=== PATIENT | female | born 1990 | race Caucasian/White ===

== ENCOUNTER 2020-03-26 15:31 | Outpatient (REF) | payer OTHER, SELFPAY ==
[2020-03-28 22:56] LABS: HPV mRNA E6/E7 rflx Not Detected (Not Detected)
== END 2020-03-26 15:32 | disposition home or self-care (01) ==
LOC: HO.LAB 15:31
PROVIDERS: PCP Internal Medicine; Visit Provider Obstetrics & Gynecology
DX: Z01.419 Encounter for gynecological examination (general) (routine) without abnormal findings (principal); F17.210 Nicotine dependence, cigarettes, uncomplicated
CPT/HCPCS: 87624; 87625; 88142

== ENCOUNTER 2021-04-27 13:36 | Outpatient (REF) | payer OTHER, SELFPAY ==
[2021-04-27 15:19] LABS: Influenza A PCR NEGATIVE (Negative); Influenza B PCR NEGATIVE (Negative); Resp Syncy Virus RNA Qual PCR NEGATIVE (Negative); SARS COV2 PCR INHOUSE NEGATIVE (Negative)
== END 2021-04-27 13:37 | disposition home or self-care (01) ==
LOC: HO.LNP 13:36
PROVIDERS: Visit Provider Physician Assistant
DX: J06.9 Acute upper respiratory infection, unspecified (principal); Z20.822 Contact with and (suspected) exposure to COVID-19
CPT/HCPCS: 0241U

== ENCOUNTER 2021-09-05 09:36 | Outpatient (REF) | payer OTHER, SELFPAY ==
[2021-09-05 12:34] LABS: Appearance Urine CLOUDY; Color Urine YELLOW; Glucose Urine UA NEG (NEG); Leukocyte Esterase Urine NEG (NEG); Nitrite Urine NEG (NEG); Specific Gravity - Urine >= 1.030 (1.005-1.025); Urine Blood NEG (NEG); Urine Ketones NEG (NEG); Urine Protein NEG (NEG-TRACE)
== END 2021-09-05 09:37 | disposition home or self-care (01) ==
LOC: HO.LAB 09:36
PROVIDERS: Visit Provider Nurse Practitioner Acute Care
DX: R30.0 Dysuria (principal)
CPT/HCPCS: 81003

== ENCOUNTER 2021-12-03 15:28 | Outpatient (REF) | payer OTHER, SELFPAY ==
[2021-12-04 11:53] LABS: CT PCR NOT DETECTED (Not Detect.)
[2021-12-04 11:54] LABS: NG PCR NOT DETECTED (Not Detect.)
== END 2021-12-03 15:29 | disposition home or self-care (01) ==
LOC: HO.LAB 15:28
PROVIDERS: Visit Provider Obstetrics & Gynecology
DX: Z11.3 Encounter for screening for infections with a predominantly sexual mode of transmission (principal); R10.2 Pelvic and perineal pain
CPT/HCPCS: 87491; 87591

== ENCOUNTER 2022-02-11 11:26 | Outpatient (REF) | payer OTHER, SELFPAY ==
[2022-02-11 14:47] LABS: CT PCR NOT DETECTED (Not Detect.); NG PCR NOT DETECTED (Not Detect.)
[2022-02-12 13:30] LABS: BV Int Neg Control Negative (Negative); BV Int Pos Control Positive (Positive)
== END 2022-02-11 11:27 | disposition home or self-care (01) ==
LOC: HO.LNP 11:26
PROVIDERS: Visit Provider Obstetrics & Gynecology
DX: Z11.3 Encounter for screening for infections with a predominantly sexual mode of transmission (principal); N76.0 Acute vaginitis; B96.89 Other specified bacterial agents as the cause of diseases classified elsewhere
CPT/HCPCS: 87480; 87491; 87510; 87591; 87660; 99212

== ENCOUNTER → 2022-04-02 13:41 | Outpatient (BNVA) | payer OTHER, SELFPAY | PROVIDERS: PCP Internal Medicine; Visit Provider Obstetrics & Gynecology | DX: Z30.9 Encounter for contraceptive management, unspecified (principal) | CPT/HCPCS: 99212 ==

== ENCOUNTER 2022-12-08 14:44 | Outpatient (AMB) | payer OTHER, SELFPAY ==
--- NOTE | 2022-12-08 14:46 | MHC.OFFVIS ---
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 Complaining of postvoid dribbling, not associated with dysuria urgency or urge incontinence. Last Pap/HPV was in 03/30 was negative PFSH Surgical History H/O LEEP Family History Father No problems noted. Mother No problems noted. Sister Crohn disease Hypothyroidism Sister No problems noted. Social History Household Members Other:: Fiance Housing: House Alcohol intake: current Alcohol intake frequency: a few times a week Patient Tobacco Use Status: Current everyday Tobacco user Cigarettes Per Day: 6 Years Smoked: 15 Current occupational status: employed Current occupation: [employer] Sexually active: Yes Sexual orientation: Straight/Heterosexual Gender identity: Female Female Reproductive History Menstrual Age of Menarche: 13 Duration of menses: 3-5 days Date of last menstrual period: 11/24/22 Total pregnancies: 2 Ab induced: 2 Date of last pap smear: 03/27/20 Review of Systems Const All systems reviewed & are unremarkable except as noted in HPI and below Card Reports as per HPI Resp Reports as per HPI GI Reports as per HPI and Reports no additional complaints Reports as per HPI Physical Exam Vital Signs: Last Vital Signs BP 100/60 12/08/22 14:47 BMI result Body Mass Index 22.4 Const General: cooperative, healthy appearing and comfortable Chest Chest palpation & inspection: normal inspection of the chest and normal palpation of entire chest wall Breast/axilla inspection: normal inspection of the breasts and normal inspection of the axillae Breast/axilla palpation: normal palpation of the breasts, normal palpation of the axillae and no axillary lymphadenopathy General: Yes bladder normal to palpation External Female Exam: No lesion Speculum Exam - Vagina: normal appearance of the vagina, normal palpation, normal vaginal discharge and not erythematous Speculum Exam - Cervix: normal appearance of the cervix and normal palpation Bimanual exam- vagina & uterus: normal bimanual exam, normal palpation, uterine size normal, bladder normal to palpation, consistency normal and normal palpation Bimanual Exam- Adnexa, other: normal adnexae, no masses and no tenderness Results AMB Urinalysis, Automated UA Leukoctes 0 Amaya/uL Last Edit by [facility] on 12/08/22 15:18 UA Nitrite Negative Last Edit by [facility] on 12/08/22 15:18 UA Urobilinogen 0 mg/dL Last Edit by [facility] on 12/08/22 15:18 UA Protein 0 mg/dL Last Edit by [facility] on 12/08/22 15:18 UA pH 5.0 Last Edit by [facility] on 12/08/22 15:18 UA Blood 0 Sylvester/uL Last Edit by [facility] on 12/08/22 15:18 UA Specific [place] 1.030 Last Edit by [facility] on 12/08/22 15:18 UA Ketone Positive Last Edit by [facility] on 12/08/22 15:18 2 Abigail Murillo 12/08/22 15:18 UA Bilirubin 0 mg/dL Last Edit by [facility] on 12/08/22 15:18 UA Glucose 0 mg/dL Last Edit by [facility] on 12/08/22 15:18 Assessment & Plan Assessment & Plan (1) Well woman exam: Code(s): Z01.419 - Encounter for gynecological examination (general) (routine) without abnormal findings Plan: Cotesting not indicated this year. Counseled the patient about the recommended dietary allowance of 1000 mg of Calcium & 600 IU of vitamin D. The patient was instructed to perform monthly self-breast exams and to schedule an annual exam in a year; All questions answered and the patient verbalized understanding. Instructed the patient to schedule annual exam in a year (2) Post-void dribbling: Code(s): N39.43 - Post-void dribbling Plan: Urine dip done in the office was negative , will refer to Urology for further management Orders: Orders AMB Urinalysis Automated Today N39.43 - Post-void dribbling Pap Smear Today Z01.419 - Encounter for gynecological examination (general) (routine) without abnormal findings Referrals Urology Referral N39.43 - Post-void dribbling Coding Level of Care Code Est Pt Prev Care 18-39y(51767) Diagnoses Well woman exam Z01.419 Post-void dribbling N39.43
[2022-12-08 14:47] VITALS: BP 100/60; BMI 22.4
== END 2022-12-08 15:28 | disposition home or self-care (01) ==
LOC: HO.HWS 14:44
PROVIDERS: PCP Internal Medicine; Visit Provider Obstetrics & Gynecology
DX: Z01.419 Encounter for gynecological examination (general) (routine) without abnormal findings (principal); N39.43 Post-void dribbling
CPT/HCPCS: 99395

== ENCOUNTER 2022-12-08 14:44 | Outpatient (REF) | payer OTHER, SELFPAY ==
[2022-12-16 06:34] LABS: HPV mRNA E6/E7 rflx Not Detected (Not Detected)
== END 2022-12-08 14:45 | disposition home or self-care (01) ==
LOC: HO.LNP 14:44
PROVIDERS: PCP Internal Medicine; Visit Provider Obstetrics & Gynecology
DX: Z01.419 Encounter for gynecological examination (general) (routine) without abnormal findings (principal); N39.43 Post-void dribbling
CPT/HCPCS: 81003; 87624; 88142

== ENCOUNTER 2023-02-09 10:03 | Outpatient (AMB) | payer OTHER, SELFPAY ==
--- NOTE | 2023-02-09 10:08 | MHC.OFFVIS ---
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 She presents to the office today as a new patient for urinary dribbling. In discussion with the patient today she reports to be doing and feeling well. She discusses noting urinary dribbling after urination. She denies any previous child births in the past. She denies urinary urgency, urinary frequency, incontinence, nocturia, hematuria, dysuria, foul smelling urine, changes to urinary stream, flank pain, fever, and or chills. She does endorse to dysuria at times however reports at times dysuria will improve with increase in fluid intake. She does endorse to a history of UTIs in the past however reports approximately one per year. In office urinalysis results reviewed with the patient today. PVR 0 mL. Patient otherwise denies any bothersome urinary issues or concerns at this time. [facility] Surgical History H/O LEEP Family History Father No problems noted. Mother No problems noted. Sister Crohn disease Hypothyroidism Sister No problems noted. Social History Household Members Other:: Fiance Housing: House Alcohol intake: current Alcohol intake frequency: a few times a week Patient Tobacco Use Status: Current everyday Tobacco user Cigarettes Per Day: 6 Years Smoked: 15 Current occupational status: employed Current occupation: [employer] for [employer] Sexual orientation: Straight/Heterosexual Gender identity: Female Female Reproductive History Menstrual Age of Menarche: 13 Review of Systems Const All systems reviewed & are unremarkable except as noted in HPI and below Physical Exam Const General: cooperative, healthy appearing, comfortable, no acute distress, well developed, alert and awake Nutritional Appearance: thin Orientation/consciousness: patient oriented x3 Limitations: no limitations HEENT Head: Yes normal to inspection, Yes normocephalic and Yes atraumatic Ears: hearing grossly normal bilaterally Eyes General: appearance normal, both eyes and all related structures Neck Neck: Yes normal visual inspection and Yes trachea midline Chest Chest palpation & inspection: normal inspection of the chest Resp Effort & Inspection: normal respiratory effort and able to speak in complete sentences Cardio Rate: regular rate GI Inspection: Yes normal to inspection General: Yes no CVA tenderness Back/Spine/Pelvis Back: no CVA tenderness Skin General skin exam: no rashes or lesions noted Neuro General: patient oriented x3 Extrem General: Yes normal to inspection Psych Appearance: grossly normal and well kempt Mental Status: mental status grossly normal Speech and movement: Normal speech and movement present and Clear speech present Affect: normal affect Attitude: cooperative Thought process: Normal thought process present Thought content: Normal thought content present Insight: Good insight present (Psych) Judgement: Good judgement present (Psych) Office Procedures Post Void Residual Post Residual Void Post Void Residual (PVR): 12 08440-Vlip Void Residual by ultrasound Results AMB Urinalysis, Automated UA Leukoctes 0 Amaya/uL Last Edit by [facility] on 02/09/23 10:19 UA Nitrite Negative Last Edit by [facility] on 02/09/23 10:19 UA Urobilinogen 0.2 mg/dL Last Edit by [facility] on 02/09/23 10:19 UA Protein 0 mg/dL Last Edit by [facility] on 02/09/23 10:19 UA pH 6.0 Last Edit by [facility] on 02/09/23 10:19 UA Blood 0 Sylvester/uL Last Edit by [facility] on 02/09/23 10:19 UA Specific [place] 1.030 Last Edit by [facility] on 02/09/23 10:19 UA Ketone Negative Last Edit by [facility] on 02/09/23 10:19 UA Bilirubin 0 mg/dL Last Edit by [facility] on 02/09/23 10:19 UA Glucose 0 mg/dL Last Edit by [facility] on 02/09/23 10:19 Results Reviewed Results Reviewed: Laboratory Last Values Urine pH (Auto) 6.0 02/09/23 10:11 Specific [place] (Auto) 1.030 02/09/23 10:11 Urine Protein (Auto) 0 mg/dL 02/09/23 10:11 Glucose (UA)(Auto) 0 mg/dL 02/09/23 10:11 Urine Ketones (Auto) Negative 02/09/23 10:11 Urine Blood (Auto) 0 Sylvester/uL 02/09/23 10:11 Urine Nitrite (Auto) Negative 02/09/23 10:11 Urine Bilirubin (Auto) 0 mg/dL 02/09/23 10:11 Urine Urobilinogen (Auto) 0.2 mg/dL 02/09/23 10:11 Leukocyte Esterase (Auto) 0 Amaya/uL 02/09/23 10:11 Assessment & Plan Assessment & Plan (1) Post-void dribbling: Code(s): N39.43 - Post-void dribbling (2) Dysuria: Code(s): R30.0 - Dysuria Plan In office urinalysis results reviewed with the patient today. PVR 0 mL. Discussed at length pelvic floor therapy; information provided as well as information on vaginal weights. Discussed obtaining retroperitoneal ultrasound for further assessment evaluation. Discussed, educated, instructed on the importance of drinking plenty of water daily. Discussed UTI prevention with D mannose supplement, vitamin-C, increasing fluid intake, behavioral therapy with timed voiding, perineal hygiene and postcoital voiding, and management of constipation with stool softeners and increased fiber intake. Follow-up in 2-3 months with imaging to be completed prior; or sooner with any issues, concerns, and or questions. Orders: Orders AMB Urinalysis Automated Today Z13.9 - Encounter for screening, unspecified US retroperitoneal comp Today N39.43 - Post-void dribbling, R30.0 - Dysuria AMB Post Void Residual by ultrasound Today N39.43 - Post-void dribbling Coding Level of Care Code New Pt Level 3 (31062) Diagnoses Post-void dribbling N39.43 Dysuria R30.0 CPT Codes Post Residual Void - PVR CPT Code: 08768-Nxlu Void Residual by ultrasound ([id number])
== END 2023-02-09 10:51 | disposition home or self-care (01) ==
PROVIDERS: PCP Internal Medicine; Visit Provider Nurse Practitioner Family
DX: N39.43 Post-void dribbling (principal); R30.0 Dysuria; Z13.9 Encounter for screening, unspecified
CPT/HCPCS: 99203

== ENCOUNTER → 2023-02-09 10:03 | Outpatient (BNVA) | payer OTHER, SELFPAY | PROVIDERS: PCP Internal Medicine; Visit Provider Nurse Practitioner Family | DX: N39.43 Post-void dribbling (principal); R30.0 Dysuria | CPT/HCPCS: 51798; 81003 ==

== ENCOUNTER 2023-04-01 08:34 | Outpatient (AMB) | payer OTHER, SELFPAY ==
--- NOTE | 2023-04-01 09:08 | AM.OFFWIN_ITS ---
Intake Vital Signs 04/01/23 09:15 Height 4 ft 10 in Weight 112 lb BMI 23.4 BP 96/60 Blood Pressure Location Rt brachial Position Sitting Pulse 86 Pulse Source Pulse Oximeter Temp 97.8 F Temp Source Oral Pulse Oximetry (%) 97 Oxygen Delivery Method Room Air Intake Visit Reasons: EST/sore throat([phone]) Intake Note: Patient here for consistent cough that has been present for about 2 weeks and starting to get a sore throat again after two weeks. Patient Tobacco Use Status: Current everyday Tobacco user Allergies No Known Allergies [No Known Allergies*] Allergy (Verified 04/01/23 09:09) Do you need a note to return to daycare/school/sports/work: No HPI EST/sore throat([phone]) HPI Details 32 [facility]. She reports sore throat and cough with foul-tasting/smelling sputum for the last week or so. She had an upper respiratory infection a couple of weeks ago, and symptoms have resolved aside from the ongoing sore throat and productive cough. Denies any fever/chills, GI symptoms. No hx asthma. Daily smoker. PFSH Surgical History H/O LEEP Family History Father No problems noted. Mother No problems noted. Sister Crohn disease Hypothyroidism Sister No problems noted. 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 [employer] Sexual orientation: Straight/Heterosexual Gender identity: Female Female Reproductive History Menstrual Age of Menarche: 13 Review of Systems Const All systems reviewed & are unremarkable except as noted in HPI and below Physical Exam Vital Signs: Last Vital Signs Temp 97.8 F 04/01/23 09:15 Pulse 86 04/01/23 09:15 BP 96/60 04/01/23 09:15 Pulse Ox 97 04/01/23 09:15 Oxygen Delivery Method Room Air 04/01/23 09:15 BMI result Body Mass Index 23.4 Const General: cooperative, healthy appearing and no acute distress HEENT Head: Yes normal to inspection Ears: hearing grossly normal bilaterally General nose exam: Normal external nose present and Normal nasal mucous membranes and turbinates present Face and sinus: Yes normal facial exam and Yes sinuses nontender Mouth: Normal oral and palatal mucosa present Throat: Yes posterior oropharynx abnormal (Erythematous) Neck Neck: Yes no lymphadenopathy Resp Effort & Inspection: normal respiratory effort and Actively coughing Quality: productive Auscultation: rhonchi (otherwise clear) upper bilaterally Cardio Jugular venous distension: no JVD Palpation: normal PMI Rate: regular rate Rhythm: regular rhythm Skin General skin exam: no rashes or lesions noted Extrem General: Yes capillary refill normal and Yes no clubbing, cyanosis or edema Psych Appearance: grossly normal Mental Status: mental status grossly normal Speech and movement: Normal speech and movement present Results AMB Rapid Strep AMB Rapid Strep Negative Last Edit by SENA Griffin on 04/01/23 09:33 Assessment & Plan Assessment & Plan (1) Bronchitis: Code(s): J40 - Bronchitis, not specified as acute or chronic Plan: Azithromycin and benzonatate sent to pharmacy. Reviewed indications, use, possible s/e of medications. Reviewed importance of increased hydration, vitamin intake, and smoking cessasion. If she does not improve with treatment or if new symptoms develop, she can return to the clinic for further evaluation. She verbalizes understanding and agrees to plan. Orders: Orders AMB Rapid Strep Screen Today Z13.9 - Encounter for screening, unspecified Medications: New azithromycin For 250 mg dose pack: take 500 mg today (day 1), then 250 mg for 4 days (days 2-5) PO 6 tabs 0RF J40 - Bronchitis, not specified as acute or chronic benzonatate 100 mg PO BID 7 days PRN 14 caps 0RF cough R05.9 - Cough, unspecified Coding Level of Care Code Est Pt Level 3 (35679) Diagnoses Bronchitis J40
[2023-04-01 09:15] VITALS: BP 96/60; PULSE 86; TEMP 36.6; O2SAT 97; BMI 23.4
== END 2023-04-01 09:36 | disposition home or self-care (01) ==
PROVIDERS: PCP Internal Medicine; Visit Provider Nurse Practitioner Family
DX: J40 Bronchitis, not specified as acute or chronic (principal); J02.9 Acute pharyngitis, unspecified
CPT/HCPCS: 87880; 99213

== ENCOUNTER 2023-05-13 10:40 | Outpatient (AMB) | payer OTHER, SELFPAY ==
--- NOTE | 2023-05-13 11:23 | MHC.OFFWIV ---
Intake Vital Signs 05/13/23 11:24 Height 4 ft 10 in Weight 113 lb 8 oz BMI 23.7 BP 110/62 Blood Pressure Location Lt brachial Position Sitting Pulse 73 Pulse Source Pulse Oximeter Temp 98.1 F Temp Source Temporal Artery Scan Pulse Oximetry (%) 100 Oxygen Delivery Method Room Air Intake Visit Reasons: EP,congestion,burning with urination([phone]) Intake Note: Pt is here c/o congestion for a few weeks as well as c/o burning when urinating for two days. Patient Tobacco Use Status: Current everyday Tobacco user Allergies No Known Allergies [No Known Allergies*] Allergy (Verified 05/13/23 11:23) Do you need a note to return to daycare/school/sports/work: No HPI EP,congestion,burning with urination([phone]) HPI Details This is a 32 year old female patient who returns to the clinic today for 2 complaints. She was seen here on 04/01 for bronchitis and was started on a Z-pack and benzonatate. She reports that she improved somewhat, however her congestion and productive cough has recurred over the last 2 weeks. She denies fever/chills. Denies GI symptoms. She also reports some burning with urination since yesterday. Does have a history of UTIs and states this is how they feel at the beginning. Denies fever, chills, or flank pain. [facility] Surgical History H/O LEEP Family History Father No problems noted. Mother No problems noted. Sister Crohn disease Hypothyroidism Sister No problems noted. Social History Household Members Other:: Fiance Housing: House Alcohol intake: current Alcohol intake frequency: a few times a week Patient Tobacco Use Status: Current everyday Tobacco user Cigarettes Per Day: 6 Years Smoked: 15 Current occupational status: employed Current occupation: [employer] Sexual orientation: Straight/Heterosexual Gender identity: Female Female Reproductive History Menstrual Age of Menarche: 13 Review of Systems Const All systems reviewed & are unremarkable except as noted in HPI and below Physical Exam Vital Signs: Last Vital Signs Temp 98.1 F 05/13/23 11:24 Pulse 73 05/13/23 11:24 BP 110/62 05/13/23 11:24 Pulse Ox 100 05/13/23 11:24 Oxygen Delivery Method Room Air 05/13/23 11:24 BMI result Body Mass Index 23.7 Const General: cooperative and no acute distress Nutritional Appearance: average body habitus HEENT Head: Yes normal to inspection Ears: hearing grossly normal bilaterally Face and sinus: Yes normal facial exam Throat: Yes posterior oropharynx normal Neck Neck: Yes no lymphadenopathy Resp Effort & Inspection: normal respiratory effort, able to speak in complete sentences and Actively coughing Quality: productive Auscultation: clear to auscultation bilaterally Cardio Palpation: normal PMI Rate: regular rate Rhythm: regular rhythm General: Yes no CVA tenderness Back/Spine/Pelvis Back: no CVA tenderness Skin General skin exam: no rashes or lesions noted Extrem General: Yes capillary refill normal and Yes no clubbing, cyanosis or edema Psych Appearance: grossly normal Mental Status: mental status grossly normal Speech and movement: Normal speech and movement present Results AMB Urinalysis, Automated UA Leukoctes 15 Amaya/uL Last Edit by Ann Marie Arevalo CMA on 05/13/23 11:35 UA Nitrite Negative Last Edit by Ann Marie Arevalo CMA on 05/13/23 11:35 UA Urobilinogen 0.2 mg/dL Last Edit by Ann Marie Arevalo CMA on 05/13/23 11:35 UA Protein 0 mg/dL Last Edit by Ann Marie Arevalo CMA on 05/13/23 11:35 UA pH 6.0 Last Edit by Ann Marie Arevalo CMA on 05/13/23 11:35 UA Blood 0 Sylvester/uL Last Edit by Ann Marie Arevalo CMA on 05/13/23 11:35 UA Specific [place] 1.025 Last Edit by Ann Marie Arevalo CMA on 05/13/23 11:35 UA Ketone Negative Last Edit by Ann Marie Arevalo CMA on 05/13/23 11:35 UA Bilirubin 0 mg/dL Last Edit by Ann Marie Arevalo CMA on 05/13/23 11:35 UA Glucose 0 mg/dL Last Edit by Ann Marie Arevalo CMA on 05/13/23 11:35 Results Reviewed Results Reviewed: Laboratory Last Values Urine pH (Auto) 6.0 05/13/23 11:33 Specific [place] (Auto) 1.025 05/13/23 11:33 Urine Protein (Auto) 0 mg/dL 05/13/23 11:33 Glucose (UA)(Auto) 0 mg/dL 05/13/23 11:33 Urine Ketones (Auto) Negative 05/13/23 11:33 Urine Blood (Auto) 0 Sylvester/uL 05/13/23 11:33 Urine Nitrite (Auto) Negative 05/13/23 11:33 Urine Bilirubin (Auto) 0 mg/dL 05/13/23 11:33 Urine Urobilinogen (Auto) 0.2 mg/dL 05/13/23 11:33 Leukocyte Esterase (Auto) 15 Amaya/uL 05/13/23 11:33 Assessment & Plan Assessment & Plan (1) Urinary tract infection: Code(s): N39.0 - Urinary tract infection, site not specified Qualifiers: Urinary tract infection type: acute cystitis Hematuria presence: without hematuria Qualified Code(s): N30.00 - Acute cystitis without hematuria Plan: Will start on Bactrim for UTI. This may also cover some of her residual URI. Will also refill her benzonatate for the cough. Advised increased hydration, Vitamin C intake. She can return to the clinic if she does not improve with treatment. She agrees to plan. (2) Upper respiratory infection: Code(s): J06.9 - Acute upper respiratory infection, unspecified Qualifiers: URI type: unspecified URI Qualified Code(s): J06.9 - Acute upper respiratory infection, unspecified Plan: Benzonatate refilled. Orders: Orders AMB Urinalysis Automated Today Z13.9 - Encounter for screening, unspecified Earl Ashford MD Medications: New sulfamethoxazole-trimethoprim 800-160 mg 1 tab PO BID 5 days 10 tabs 0RF N39.0 - Urinary tract infection, site not specified ANTHONY Salomon Refilled benzonatate 100 mg PO BID 7 days PRN 14 caps 0RF cough R05.9 - Cough, unspecified ANTHONY Salomon Coding Level of Care Code Est Pt Level 3 (62858) Diagnoses Acute cystitis without hematuria N30.00 Urinary tract infection type: acute cystitis Hematuria presence: without hematuria Upper respiratory tract infection, unspecified type J06.9 URI type: unspecified URI
[2023-05-13 11:24] VITALS: BP 110/62; PULSE 73; TEMP 36.7; O2SAT 100; BMI 23.7
== END 2023-05-13 12:27 | disposition home or self-care (01) ==
PROVIDERS: PCP Internal Medicine; Visit Provider Nurse Practitioner Family
DX: N30.00 Acute cystitis without hematuria (principal); J06.9 Acute upper respiratory infection, unspecified; R30.9 Painful micturition, unspecified
CPT/HCPCS: 81003; 99213

== ENCOUNTER 2024-11-18 11:51 | Outpatient (REF) | payer OTHER, SELFPAY | END 2024-11-18 11:52 | disposition home or self-care (01) | LOC: HO.LNP 11:51 | PROVIDERS: PCP Internal Medicine; Visit Provider Physician Assistant | DX: N39.0 Urinary tract infection, site not specified (principal) | CPT/HCPCS: 81003; 87086; 87088; 87186; 99212 ==

== ENCOUNTER 2024-11-18 11:51 | Outpatient (AMB) | payer OTHER, SELFPAY ==
[2024-11-18 12:01] VITALS: BP 100/56; PULSE 65; TEMP 36.8; O2SAT 98; BMI 27.2
--- NOTE | 2024-11-18 12:01 | AM.OFFWIN_ITS ---
Intake Vital Signs 11/18/24 12:01 Height 4 ft 10 in Weight 130 lb BMI 27.2 BP 100/56 L Blood Pressure Location Rt brachial Position Sitting Pulse 65 Pulse Source Pulse Oximeter Temp 98.2 F Temp Source Oral Pulse Oximetry (%) 98 Oxygen Delivery Method Room Air Intake Visit Reasons: EP UTI? Patient Tobacco Use Status: Current everyday Tobacco user In Home Baby Sitter Required: No Is last menstrual period known: Yes Last menstrual period: 10/28/24 Post menopausal: No Patient : No Allergies No Known Allergies (No Known Allergies*) Allergy (Verified 11/18/24 12:09) Do you need a note to return to daycare/school/sports/work: No HPI HPI Comments History of Present Illness Details History - The patient is a 33-year-old female pr esenting with symptoms of a urinary tract infection (UTI). - She reports frequent urination with a burning sensation during micturition. - The symptoms began approximately a mon ago, resolved with [id number] medication, but have since recurred. - She denies any fever or low back pain and has not noticed any bood in her urine - She has a history of similar symptoms and was referred to urology, although she did not attend the appointment. Physical Exam General: Cooperative, healthy appearing, comfortable, no acute distress and well developed Orientation: Patient oriented x3 Limitations: No limitations Head: Normal to inspection Ears: Hearing grossly normal bilaterally Face and sinus: Normal facial exam Neck: Normal visual inspection and Yes full ROM Respiratory: Normal respiratory effort and able to speak in complete sentences. Skin: No rashes or lesions noted Neuro: Patient oriented x3 Back/spine: negative CVA bilaterally PFSH Surgical History H/O LEEP Family History Father No problems noted. Mother No problems noted. Sister Crohn disease Hypothyroidism Sister No problems noted. Social History Household Members Other:: Fiance Housing: House Alcohol intake: current Alcohol intake frequency: a few times a week Patient Tobacco Use Status: Current everyday Tobacco user Cigarettes Per Day: 6 Years Smoked: 15 Patient : No Current occupational status: employed Current occupation: [employer] for [employer] Sexual orientation: Straight/Heterosexual Gender identity: Female Female Reproductive History Menstrual Age of Menarche: 13 Date of last menstrual period: 10/28/24 Review of Systems Const All systems reviewed & are unremarkable except as noted in HPI and below Physical Exam Vital Signs: Last Vital Signs Temp 98.2 F 11/18/24 12:01 Pulse 65 11/18/24 12:01 BP 100/56 L 11/18/24 12:01 Pulse Ox 98 11/18/24 12:01 Oxygen Delivery Method Room Air 11/18/24 12:01 BMI result Body Mass Index 27.2 Results AMB Urinalysis, Automated UA Leukoctes 500 Amaya/uL Last Edit by Carroll Mckeon CMA on 11/18/24 12:1 2 UA Nitrite Positive Last Edit by Carroll Mckeon CMA on 11/18/24 12:12 UA Urobilinogen 8 mg/dL Last Edit by Carroll Mckeon CMA on 11/18/24 12:1 2 UA Protein 0 mg/dL Last Edit by Carroll Mckeon CMA on 11/18/24 12:12 UA pH 5.0 Last Edit by Carroll Mckeon CMA on 11/18/24 12:12 UA Blood 10 Sylvester/uL Last Edit by Carroll Mckeon CMA on 11/18/24 12:12 UA Specific [place] 1.030 Last Edit by Carroll Mckeon CMA on 11/18/24 12:12 UA Ketone Positive Last Edit by Carroll Mckeon CMA on 11/18/24 12:12 UA Bilirubin 4 mg/dL Last Edit by Carroll Mckeon CMA on 11/18/24 12:12 UA Glucose 250 mg/dL Last Edit by Carroll Mckeon CMA on 11/18/24 12:12 Results Reviewed Results Reviewed: Laboratory Last Values Urine pH (Auto) 5.0 11/18/24 12:12 Specific [place] (Auto) 1.030 11/18/24 12:12 Urine Protein (Auto) 0 mg/dL 11/18/24 12:12 Glucose (UA)(Auto) 250 mg/dL 11/18/24 12:12 Urine Ketones (Auto) Positive 11/18/24 12:12 Urine Blood (Auto) 10 Sylvester/uL 11/18/24 12:12 Urine Nitrite (Auto) Positive 11/18/24 12:12 Urine Bilirubin (Auto) 4 mg/dL 11/18/24 12:12 Urine Urobilinogen (Auto) 8 mg/dL 11/18/24 12:12 Leukocyte Esterase (Auto) 500 Amaya/uL 11/18/24 12:12 Assessment & Plan Assessment & Plan (1) Urinary tract infection: Code(s): N39.0 - Urinary tract infection, site not specified Qualifiers: Urinary tract infection type: acute cystitis Hematuria presence: without hematuria Qualified Code(s): N30.00 - Acute cystitis without hematuria Plan: Plan Patient was informed and verbally consented to the use of an ambient scribe for clinic note documentation during this visit. 1. Urinary Tract Infection (Uti) - Prescribed cefuroxime 500 mg every 12 hours for 5 days. - Urine culture to be sent to identify any resistant organisms. - Follow-up if symptoms persist or worsen. Orders: Orders Urine Culture Today N39.0 - Urinary tract infection, site not specified AMB Urinalysis Automated Today Z13.9 - Encounter for screening, unspecified Medications: New cefuroxime axetil 500 mg PO Q12H 10 tabs 0RF Coding Level of Care Code Est Pt Level 3 (35698) Diagnoses Acute cystitis without hematuria N30.00 Urinary tract infection type: acute cystitis Hematuria presence: without hematuria
== END 2024-11-18 12:37 | disposition home or self-care (01) ==
PROVIDERS: PCP Internal Medicine; Visit Provider Physician Assistant
DX: N30.00 Acute cystitis without hematuria (principal); Z13.9 Encounter for screening, unspecified